=== PATIENT | male | born 1995 | race Caucasian/White ===

== ENCOUNTER 2020-03-12 19:30 | Emergency (ER) | payer MEDICAID ==
[~2020-03-12] VITALS: Ht 160 cm; Wt 90.7 kg
[2020-03-12 20:02] VITALS: BP 119/71
== END 2020-03-12 21:18 | disposition home or self-care (01) ==
LOC: MED 19:30
DX: M25.512 Pain in left shoulder (principal); J45.909 Unspecified asthma, uncomplicated; V89.2XXA Person injured in unspecified motor-vehicle accident, traffic, initial encounter; Y93.89 Activity, other specified; Y92.89 Other specified places as the place of occurrence of the external cause; Y99.8 Other external cause status
CPT/HCPCS: 73030; 99283; Q0092

== ENCOUNTER 2021-01-05 12:40 | Emergency (ER) | payer MEDICAID, SELFPAY ==
[~2021-01-05] VITALS: Ht 160 cm; Wt 89.8 kg
[2021-01-05 12:46] VITALS: BP 118/62
--- NOTE | 2021-01-05 12:54 | NUR ---
PT TO WAIT OUTSIDE AND WAIT FOR DR EVALUATION
--- NOTE | 2021-01-05 13:10 | NUR ---
SOLOMON FRANCOIS EVALUATING PT OUTSIDE
--- NOTE | 2021-01-05 13:15 | NUR ---
PT TAKEN TO RAD VIA W/C
[2021-01-05] MEDS ORDERED: ALBU0.0912 IH (14:18)
[2021-01-05] MEDS ORDERED: IBUP-2213 PO (14:18)
[2021-01-05] MEDS ORDERED: PROM118S5 PO (14:18)
[2021-01-05 15:26] VITALS: BP 118/62
--- NOTE | 2021-01-05 15:26 | NUR ---
Patient seen and discharge by SOLOMON Dowling, no nursing interventions provided. Patient discharged with v/s stable. Written and verbal after care instructions given and explained. Patient alert, oriented and verbalized understanding of instructions. Ambulatory with steady gait. All questions addressed prior to discharge. ID band removed. Patient advised to follow up with PMD. Rx of Proventil, Ibuprofen and Promethazine syrup given. Patient educated on indication of medication including possible reaction and side effects. Opportunity to ask questions provided and answered.
== END 2021-01-05 15:08 | disposition home or self-care (01) ==
LOC: MED 12:40
DX: R50.9 Fever, unspecified (principal); Z20.822 Contact with and (suspected) exposure to COVID-19; R05 Cough; J45.909 Unspecified asthma, uncomplicated; Z79.899 Other long term (current) drug therapy; Z98.890 Other specified postprocedural states
CPT/HCPCS: 71045; 99284